=== PATIENT | female | born 1950 | race American Indian/Alaskan Native ===

== ENCOUNTER 2018-04-27 00:35 | Emergency (ER) | payer SELFPAY ==
[2018-04-27] MEDS ORDERED: MOTRIN PO ONE (01:47)
--- NOTE | 2018-04-27 02:22 | Cat Scan Report ---
FINAL REPORT EXAM: CT HEAD/BRAIN WO CON HISTORY: Acute Headache and Hypertensive COMPARISON: None available. TECHNIQUE: Axial images obtained skull base through vertex. FINDINGS: No acute intracranial hemorrhage, midline shift or pathologic extra axial fluid collection. Mild chronic small vessel ischemic disease. Ventricles and cisterns are normal in size and configuration for the patient's age. Dodd-white differentiation preserved. Calvarium grossly intact. Benign punctate calcification bilateral basal ganglia. Visualized ocular globes are grossly unremarkable. Mild to moderate calcified plaque along the carotid siphons. Under pneumatization of the mastoid air cells. Visualized paranasal sinuses are clear. IMPRESSION: No grossly acute intracranial abnormality. Mild chronic small vessel ischemic disease.
[2018-04-27 02:25] LABS: Hematocrit 35.5 % (30.3-42.9); Hemoglobin 12.2 gm/dl (10.1-14.3); Mean Corpuscular HGB Conc 34 % (30-34); Mean Corpuscular Hemoglobin 31 pg (28-32); Mean Corpuscular Volume 90 fl (79-97); Platelet Count 292 K/mm3 (140-440); Red Blood Count 3.94 M/mm3 (3.65-5.03); Red Cell Distribution Width 12.7 % (13.2-15.2)
[2018-04-27 02:30] LABS: Albumin 3.9 g/dL (3.9-5); Calcium 9.1 mg/dL (8.4-10.2)
--- NOTE | 2018-04-27 03:29 | Emergency Department Report ---
ED General Adult HPI - General Chief complaint: Headache Stated complaint: HIGH BP/HEADACHE Time Seen by Provider: 04/27/18 03:14 Source: patient Mode of arrival: Ambulatory Limitations: Language Barrier - History of Present Illness Initial comments: 67-year-old woman brought in by son for complaint of persistent headache for 1 day, and he is concerned she may have had a stroke, because she appears tired, and her blood pressure is not under control. She normally takes losartan for her blood pressure, but checked it earlier, found that it was in the 200 systolic range, and son insisted that she come for checkup to be sure she was not having any stroke or bleed. Patient's only history is essential hypertension, treated with losartan, no past history of stroke, or other known cardiovascular disease. She does not have diabetes either. She is not currently working, but son reports that she may have been under some stress, with possible dispute with other family members, such as a daughter. Patient takes no other medications routinely. Headache is localized to the posterior right occiput extended a little downward into the neck, but does not radiate elsewhere, is achy, a little worse with movement, 10 out of 10 as described in triage, but resting comfortably at time of examination. She has no focal symptoms, no facial weakness, no difficulty speaking or forming words, no loss of consciousness or syncope, no weakness of arms or legs, no unsteadiness. There are no secondary systemic symptoms, no fever or chills or diaphoresis, no nasal congestion, no dull pain, no nausea or vomiting. Severity scale (0 -10): 8 - Related Data Previous Rx's Medication Instructions Recorded Last Taken Type Butalb/Acetaminophen/Caffeine 1 cap PO Q8HR PRN #20 cap 04/27/18 Unknown Rx [Fioricet 50-300-40 mg CAP] Allergies Allergy/AdvReac Type Severity Reaction Status Date / Time No Known Allergies Allergy Unverified 04/27/18 01:27 ED Review of Systems ROS: Stated complaint: HIGH BP/HEADACHE Other details as noted in HPI Comment: All other systems reviewed and negative Constitutional: denies: chills, fever Eyes: denies: eye pain, vision change ENT: denies: ear pain, throat pain, dental pain, epistaxis Respiratory: denies: cough, shortness of breath, wheezing Cardiovascular: denies: chest pain, palpitations Endocrine: no symptoms reported Gastrointestinal: denies: abdominal pain, nausea, diarrhea Genitourinary: denies: urgency, dysuria, discharge Musculoskeletal: denies: back pain, joint swelling, arthralgia Skin: denies: rash, lesions Neurological: as per HPI, headache. denies: weakness, paresthesias, confusion, abnormal gait, vertigo Psychiatric: denies: anxiety, depression Hematological/Lymphatic: denies: easy bleeding, easy bruising ED Past Medical Hx - Past Medical History Previous Medical History?: Yes Hx Hypertension: Yes Hx Diabetes: Yes (Borderline not on meds) - Surgical History Past Surgical History?: Yes Additional Surgical History: C Section - Social History Smoking Status: Never Smoker - Medications Home Medications: Home Medications Medication Instructions Recorded Confirmed Last Taken Type Butalb/Acetaminophen/Caffeine 1 cap PO Q8HR PRN #20 cap 04/27/18 Unknown Rx [Fioricet 50-300-40 mg CAP] ED Physical Exam - General Limitations: Language Barrier General appearance: alert, in no apparent distress (blood pressure 180/115 at time of triage, 169/87 at time of examination) - Head Head exam: Present: atraumatic, normocephalic, other (mild to moderate right occipital tenderness to palpation at base of the occiput and proximal neck) - Eye Eye exam: Present: normal appearance, PERRL, EOMI. Absent: scleral icterus, conjunctival injection, nystagmus, periorbital swelling, periorbital tenderness - ENT ENT exam: Present: normal exam, mucous membranes moist, TM's normal bilaterally - Neck Neck exam: Present: normal inspection, tenderness (right proximal occipital portion of neck, paraspinous musculature, no vertebral tenderness), full ROM. Absent: meningismus, lymphadenopathy - Respiratory Respiratory exam: Present: normal lung sounds bilaterally. Absent: respiratory distress, wheezes, rales, rhonchi - Cardiovascular Cardiovascular Exam: Present: regular rate, normal heart sounds - GI/Abdominal GI/Abdominal exam: Present: soft, normal bowel sounds. Absent: tenderness, guarding, rebound - Rectal Rectal exam: Present: deferred - Extremities Exam Extremities exam: Present: normal inspection. Absent: pedal edema - Back Exam Back exam: Present: normal inspection. Absent: tenderness, CVA tenderness (R), CVA tenderness (L) - Neurological Exam Neurological exam: Present: alert, oriented X3, CN II-XII intact, reflexes normal. Absent: motor sensory deficit - Psychiatric Psychiatric exam: Present: normal affect, normal mood - Skin Skin exam: Present: warm, dry, intact, normal color. Absent: cyanosis, petechiae, pallor, ecchymosis ED Course Vital Signs 04/27/18 04/27/18 04/27/18 01:35 01:57 02:56 Temperature 37.1 C Pulse Rate 84 Respiratory 18 20 Rate Blood Pressure 188/115 Blood Pressure [Right] O2 Sat by Pulse 96 95 Oximetry 04/27/18 03:03 Temperature 36.9 C Pulse Rate 77 Respiratory 16 Rate Blood Pressure Blood Pressure 183/88 [Right] O2 Sat by Pulse 94 Oximetry ED Medical Decision Making - Lab Data Result diagrams: 04/27/18 01:52 04/27/18 01:52 - EKG Data -: EKG Interpreted by Me (normal EKG, normal sinus rhythm, normal QRS morphology , normal QRS axis 11) EKG shows normal: sinus rhythm, axis, intervals, QRS complexes, ST-T waves - EKG Data When compared to previous EKG there are: previous EKG unavailable - Radiology Data Radiology results: report reviewed (CT scan of head without contrast, unremarkable, no acute pathology, no stroke, no intracranial hemorrhage) - Medical Decision Making Patient has uncontrolled hypertension as chief complaint, and was significantly hypertensive at time of arrival, but with rest and observation in emergency department, systolic blood pressure has been declining steadily. Further, laboratory evaluation is negative, x-ray evaluation was negative for signs of intracranial hemorrhage or other injury, and physical examination, in particular neurologic examination, is entirely normal, with no signs worrisome for stroke. Patient will be treated for muscular tension type headache, with mild analgesic, [place], with one tablet given emergency department, and patient discharged with Fioricet as needed for any residual headache - Differential Diagnosis tension-type headache, intracranial hemorrhage, stroke Critical Care Time: No Critical care attestation.: If time is entered above; I have spent that time in minutes in the direct care of this critically ill patient, excluding procedure time. ED Disposition Clinical Impression: Muscle tension headache, Asymptomatic hypertensive urgency Disposition: -01 TO HOME OR SELFCARE Is pt being admited?: No Does the pt Need Aspirin: No Condition: Stable Instructions: Chronic Hypertension (ED), Tension Headache (ED) Additional Instructions: Rest, apply cold compresses to area that are sore when you have a headache, 30 minutes at a time, 3-4 times per day. Ibuprofen or Tylenol can also be taken for mild headaches, follow the directions on the packaging. Severe or prolonged headaches, he may take Fioricet, up to 3 times per day for persistent headache pain. Check blood pressure regularly each morning, keep a record of it, and if the blood pressure tends to run high over a period of several days, he should follow with your doctor to discuss any additional medication or stronger doses of your current medication. Until that time, continue taking her medicine as previously prescribed. Return any time for recheck if you have any recurrent or new or worrisome symptoms. Prescriptions: Butalb/Acetaminophen/Caffeine [Fioricet 50-300-40 mg CAP] 1 cap PO Q8HR PRN #20 cap PRN Reason: Headache Referrals: PRIMARY CARE, [Primary Care Provider] - 3-5 Days Time of Disposition: 03:36
[2018-04-27 03:45] VITALS: BP 179/86
[2018-04-27 03:56] LABS: Bacteria,Urine 1+ /HPF (Negative); Bilirubin,Urine NEG (Negative); Blood,Urine MOD (Negative); Calcium Oxalate Crystals,Urine FEW; Color,Urine Yellow (Yellow); Urobilinogen,Urine < 2.0 mg/dL (<2.0)
[2018-04-27 04:01] LABS: Protein,Urine >500 mg/dL (Negative)
== END 2018-04-27 03:45 | disposition home or self-care (01) ==
LOC: ED 00:35
DX: I16.0 Hypertensive urgency (principal); G44.209 Tension-type headache, unspecified, not intractable; I10 Essential (primary) hypertension; E11.9 Type 2 diabetes mellitus without complications
CPT/HCPCS: 36415; 70450; 80053; 81001; 85027; 93005; 93010